=== PATIENT | male | born 1940 | race Caucasian/White ===

== ENCOUNTER 2018-09-11 13:17 | Outpatient (CLI) | payer MEDICARE ==
--- NOTE | 2018-09-11 15:03 | CT ---
HEAD CT WITHOUT CONTRAST: Date: 09/11/18 COMPARISON: None. HISTORY: Uncoordinated arm movement. TECHNIQUE: Axial CT imaging is obtained at 4.8 mm intervals from vertex through skull base without contrast. FINDINGS: The imaged paranasal sinuses and mastoid air cells are well aerated. No displaced calvarial fracture. There is mild diffuse cerebral volume loss. There is a punctate focus of hyperdensity within the birdie ventricular white matter adjacent to the frontal horn of the right lateral ventricle suggesting a 2-3 mm benign calcification No intracranial hemorrhage, midline shift, or mass effect. There is a focal area of subcortical hypodensity in the left frontal region on axial image 13 measuri ng 8.0 mm suggesting sequelae of prior insult and/or volume averaging. IMPRESSION: No acute findings. Incidental/chronic findings as detailed above. No intracranial hemorrhage or displaced calvarial fracture. POS: H
== END 2018-09-11 13:18 | disposition home or self-care (01) ==
LOC: SCSCT 13:17
PROVIDERS: ATTEND Specialist
DX: Z00.01 Encounter for general adult medical examination with abnormal findings (principal)
CPT/HCPCS: 70450

== ENCOUNTER 2020-11-18 18:34 | Emergency (ER) | payer MEDICARE ==
[2020-11-18] MEDS ORDERED: Bupivacaine 0.5% 10 ML VIAL ONE (19:34)
[2020-11-18] MEDS ORDERED: Lidocaine 1% PF 5 ML VIAL ONE (19:34)
== END 2020-11-18 20:05 | disposition home or self-care (01) ==
LOC: ERS 18:34
DX: K02.9 Dental caries, unspecified (principal); E11.9 Type 2 diabetes mellitus without complications; I10 Essential (primary) hypertension; I25.10 Atherosclerotic heart disease of native coronary artery without angina pectoris; E78.5 Hyperlipidemia, unspecified
CPT/HCPCS: 99282; J3490

== ENCOUNTER 2024-04-17 09:47 | Outpatient (CLI) | payer MEDICARE | END 2024-04-17 09:48 | disposition home or self-care (01) | LOC: BICRAD 09:47 | PROVIDERS: ATTEND Specialist | DX: M54.50 Low back pain, unspecified (principal); M43.16 Spondylolisthesis, lumbar region; M25.78 Osteophyte, vertebrae | CPT/HCPCS: 72100 ==

== ENCOUNTER 2024-04-22 09:06 | Outpatient (CLI) | payer MEDICARE | END 2024-04-22 09:07 | disposition home or self-care (01) | LOC: SCSMRI 09:06 | PROVIDERS: ATTEND Specialist | DX: M54.50 Low back pain, unspecified (principal); M47.816 Spondylosis without myelopathy or radiculopathy, lumbar region; M48.061 Spinal stenosis, lumbar region without neurogenic claudication; M47.817 Spondylosis without myelopathy or radiculopathy, lumbosacral region; M48.07 Spinal stenosis, lumbosacral region; M71.38 Other bursal cyst, other site | CPT/HCPCS: 72148 ==

== ENCOUNTER 2024-07-01 09:17 | Outpatient (CLI) | payer MEDICARE ==
[2024-07-01 11:07] LABS: #Basophils Less than 0.03 10x3/uL (0.0-0.2); %Basophils 0.4 % (0.0-1.0); %Eosinophils 1.3 % (0.0-10.0); %Lymphocytes 17.5 % (21.0-51.0); %Monocytes 8.3 % (0.0-10.0); %Neutrophils 72.1 % (42.0-75.0); Hematocrit 49.1 % (42.0-52.0); Mean Corpuscular HGB CONC 32.6 g/dL (32.0-36.0); Mean Corpuscular Volume 91.9 fL (78.0-98.0); Mean Platelet Volume 9.9 fL (7.4-10.4); Platelet Count 130 10x3/uL (130-400); RBC Distribution Width 13.7 % (11.5-14.5); Red Blood Cell (RBC) Count 5.34 mill/uL (4.70-6.10)
[2024-07-01 11:47] LABS: Anion Gap 12 mmol/L (10-20); BUN (Urea Nitrogen) 15 mg/dL (8.4-25.7); Calc. Creatinine Clearance 0 mL/min (70-130); Calcium 9.3 mg/dL (7.8-10.44); Carbon Dioxide 27 mmol/L (23-31); Chloride 106 mmol/L (98-107); Estimated GFR 90; Glucose 129 mg/dL (83-110); Sodium 141 mmol/L (136-145)
== END 2024-07-01 09:18 | disposition home or self-care (01) ==
LOC: LABBT 09:17
PROVIDERS: ATTEND Neurological Surgery
DX: Z01.818 Encounter for other preprocedural examination (principal); M54.16 Radiculopathy, lumbar region; M71.30 Other bursal cyst, unspecified site
CPT/HCPCS: 80048; 85025; 93005; 93010

== ENCOUNTER 2024-07-08 05:35 | Day surgery (SDC) | payer MEDICARE ==
[2024-07-01 09:46] VITALS: BMI 23.7
[2024-07-08] MEDS ORDERED: EPINEPHrine 1 MG/ML VIAL ONE (06:08)
[2024-07-08] MEDS ORDERED: Thrombin 5000 UNITS/5 ML VIAL ONE (06:08)
[2024-07-08] MEDS ORDERED: Bupivacaine PF 0.5% 30 ML VIAL ONE (06:09)
[2024-07-08] MEDS ORDERED: Lidocaine 1% PF 5 ML VIAL ONE (06:21)
[2024-07-08] MEDS ORDERED: fentaNYL PF 100 MCG/2 ML SYRINGE ONE ×2 (06:21→08:35)
[2024-07-08] MEDS ORDERED: PROPOFOL 20 ML ONE (06:21)
[2024-07-08] MEDS ORDERED: Rocuronium Bromide 10 MG/ML (10ML VIAL) ONE (06:21)
[2024-07-08] MEDS ORDERED: CEFAZOLIN 2 GM VIAL ONE (06:39)
[2024-07-08] MEDS ORDERED: ePHEDrine Sulfate 50 MG/10 ML VIAL ONE (07:35)
[2024-07-08] MEDS ORDERED: Ondansetron PF 4 MG/2 ML Vial ONE (07:57)
[2024-07-08] MEDS ORDERED: Dexamethasone 20 MG/5 ML VIAL ONE (07:57)
[2024-07-08] MEDS ORDERED: SUGAMMADEX SODIUM 200 MG/2 ML VIAL ONE (08:06)
[2024-07-08] MEDS ORDERED: HYDROmorphone 0.5 MG/0.5 ML SYRINGE ONE (08:36)
== END 2024-07-08 10:07 | disposition home or self-care (01) ==
LOC: SDC 05:35
PROVIDERS: ATTEND Neurological Surgery
PROC: [UNRECOGNIZED PROCEDURE] (principal; 2024-07-08)
PROC: 01NB0ZZ Release Lumbar Nerve, Open Approach (ICD-10-PCS; 2024-07-08)
DX: M54.16 Radiculopathy, lumbar region (principal); M17.30 Unilateral post-traumatic osteoarthritis, unspecified knee; M43.16 Spondylolisthesis, lumbar region; M71.38 Other bursal cyst, other site; E11.9 Type 2 diabetes mellitus without complications; I10 Essential (primary) hypertension; E78.5 Hyperlipidemia, unspecified; N40.0 Benign prostatic hyperplasia without lower urinary tract symptoms; Z90.49 Acquired absence of other specified parts of digestive tract; Z98.890 Other specified postprocedural states; Z95.5 Presence of coronary angioplasty implant and graft; Z87.891 Personal history of nicotine dependence; Z79.84 Long term (current) use of oral hypoglycemic drugs; Z79.899 Other long term (current) drug therapy
CPT/HCPCS: 63047; 63267; J0171; J0665; J1100; J1171; J2405; J2704

== ENCOUNTER 2025-03-30 10:43 | Outpatient (CLI) | payer MEDICARE | END 2025-03-30 10:44 | disposition home or self-care (01) | LOC: BICRAD 10:43 | PROVIDERS: ATTEND Specialist | DX: M25.552 Pain in left hip (principal); M16.12 Unilateral primary osteoarthritis, left hip ==

== ENCOUNTER 2025-04-07 12:20 | Outpatient (CLI) | payer MEDICARE | END 2025-04-07 12:21 | disposition home or self-care (01) | LOC: SCSMRI 12:20 | PROVIDERS: ATTEND Specialist | DX: M25.552 Pain in left hip (principal); S73.102A Unspecified sprain of left hip, initial encounter; S72.002A Fracture of unspecified part of neck of left femur, initial encounter for closed fracture ==